=== PATIENT | male | born 1985 | race Caucasian/White ===

== ENCOUNTER 2021-09-29 16:25 | Emergency (ER) | payer OTHER ==
[~2021-09-29] VITALS: Ht 167.6 cm; Wt 70.3 kg
[2021-09-29 17:31] LABS: BASOPHILS ABSOLUTE AUTO 0.04 K/mm3 (0.00-0.23); BASOPHILS PERCENT AUTO 0 % (0-2); EOSINOPHILS ABSOLUTE AUTO 0.02 K/mm3 (0.00-0.68); EOSINOPHILS PERCENT AUTO 0 % (0-6); Hematocrit 37.3 % (37.0-53.0); Hemoglobin 13.4 g/dL (13.5-17.5); IMMATURE GRAN ABSOLUTE AUTO 0.02 K/mm3 (0.00-0.10); IMMATURE GRAN PERCENT AUTO 0 % (0-1); LYMPHOCYTES ABSOLUTE AUTO 1.56 K/mm3 (0.84-5.20); LYMPHOCYTES PERCENT AUTO 16 % (21-46); MONOCYTES ABSOLUTE AUTO 1.05 K/mm3 (0.16-1.47); MONOCYTES PERCENT AUTO 11 % (4-13); Mean Corpuscular HGB 33.8 pg (26.0-34.0); Mean Corpuscular HGB Conc 35.9 g/dL (31.5-36.5); Mean Corpuscular Volume 94 fL (80-100); Mean Platelet Volume 10.8 fL (9.1-12.4); NEUTROPHILS ABSOLUTE AUTO 6.82 K/mm3 (1.96-9.15); NEUTROPHILS PERCENT AUTO 72 % (41-73); Platelet Count 100 K/mm3 (150-400); RDW Coefficient Variation 12.3 % (11.7-14.2); Red Blood Cell Count 3.97 M/mm3 (4.30-5.90); White Blood Cell Count 9.51 K/mm3 (4.00-11.30)
[2021-09-29 17:54] LABS: U Amphetamine Screen Not Detected; U Barbituate Screen Not Detected; U Benzodiazapine Screen Not Detected; U Buprenorphine Screen Not Detected; U Cannabinoids Screen DETECTED; U Cocaine Screen Not Detected; U Methadone Screen Not Detected; U Methamphetamine Screen Not Detected; U Opiates Screen Not Detected; U Oxycodone Screen Not Detected; U Phencyclidine Screen Not Detected; U Propoxyphene Screen Not Detected
[2021-09-29 18:34] LABS: Ethanol (Alcohol), Blood, Med <3 mg/dL
[2021-09-29 18:35] LABS: Anion Gap 10 mmol/L (6-16); Blood Urea Nitrogen 4 mg/dL (8-24); Bun/Creatinine Ratio 4.4 (12.0-20.0); CO2, Blood 26 mmol/L (21-32); Calcium, Blood 9.4 mg/dL (8.5-10.1); Chloride, Blood 98 mmol/L (98-108); Creatinine, Blood 0.92 mg/dL (0.60-1.20); Glomerular Filtration Rate >60 (60-); Glucose, Blood 96 mg/dL (70-99); Potassium, Blood 2.9 mmol/L (3.5-5.5); Sodium, Blood 134 mmol/L (136-145); Troponin I <0.015 ng/mL (0.000-0.040)
== END 2021-09-29 19:00 | disposition home or self-care (01) ==
LOC: ER 16:25
PROVIDERS: Student in an Organized Health Care Education/Training Program
DX: F12.90 Cannabis use, unspecified, uncomplicated (principal); R40.4 Transient alteration of awareness; R55 Syncope and collapse; F17.210 Nicotine dependence, cigarettes, uncomplicated
CPT/HCPCS: 80048; 82947; 84484; 85025; 93005; 93010; 99284-25; A9270; G0480

== ENCOUNTER 2021-10-30 10:10 | Emergency (ER) | payer OTHER ==
[~2021-10-30] VITALS: Ht 177.8 cm; Wt 70.3 kg
[2021-10-30 10:47] LABS: BASOPHILS ABSOLUTE AUTO 0.05 K/mm3 (0.00-0.23); BASOPHILS PERCENT AUTO 1 % (0-2); EOSINOPHILS ABSOLUTE AUTO 0.18 K/mm3 (0.00-0.68); EOSINOPHILS PERCENT AUTO 2 % (0-6); Hematocrit 41.2 % (37.0-53.0); Hemoglobin 14.2 g/dL (13.5-17.5); IMMATURE GRAN ABSOLUTE AUTO 0.03 K/mm3 (0.00-0.10); IMMATURE GRAN PERCENT AUTO 0 % (0-1); LYMPHOCYTES ABSOLUTE AUTO 2.11 K/mm3 (0.84-5.20); LYMPHOCYTES PERCENT AUTO 21 % (21-46); MONOCYTES ABSOLUTE AUTO 0.67 K/mm3 (0.16-1.47); MONOCYTES PERCENT AUTO 7 % (4-13); Mean Corpuscular HGB 32.9 pg (26.0-34.0); Mean Corpuscular HGB Conc 34.5 g/dL (31.5-36.5); Mean Corpuscular Volume 95 fL (80-100); Mean Platelet Volume 10.5 fL (9.1-12.4); NEUTROPHILS ABSOLUTE AUTO 7.06 K/mm3 (1.96-9.15); NEUTROPHILS PERCENT AUTO 70 % (41-73); Platelet Count 284 K/mm3 (150-400); RDW Coefficient Variation 11.5 % (11.7-14.2); Red Blood Cell Count 4.32 M/mm3 (4.30-5.90)
[2021-10-30 11:06] LABS: Alanine Aminotransfer (ALT/SGP 29 U/L (12-78); Albumin, Blood 3.8 g/dL (3.4-5.0); Alk Phos 92 U/L (50-136); Anion Gap 5 mmol/L (6-16); Aspartate Aminotrans (AST/SGOT 23 U/L (12-37); Bilirubin, Total 0.3 mg/dL (0.1-1.0); Blood Urea Nitrogen 7 mg/dL (8-24); Bun/Creatinine Ratio 8.2 (12.0-20.0); CO2, Blood 26 mmol/L (21-32); Calcium, Blood 9.5 mg/dL (8.5-10.1); Chloride, Blood 105 mmol/L (98-108); Creatinine, Blood 0.85 mg/dL (0.60-1.20); Globulin, Blood 3.7 g/dL (2.2-4.0); Glomerular Filtration Rate >60 (60-); Glucose, Blood 116 mg/dL (70-99); Potassium, Blood 4.1 mmol/L (3.5-5.5); Sodium, Blood 136 mmol/L (136-145); Total Protein, Blood 7.5 g/dL (6.4-8.2)
[2021-10-30 11:40] LABS: Source, Urine Clean Catch
[2021-10-30 11:49] LABS: Bilirubin, Urine Neg (Neg); Blood, Urine Neg (Neg); Glucose Qualitative, Urine Neg (Neg); Ketones, Urine Neg (Neg); Leukocyte Esterase, Urine 1+ (Neg); Nitrite, Urine Neg (Neg); Protein, Urine Neg (Neg); Specific Gravity, Urine 1.025 (1.003-1.022); Urobilinogen, Urine NORM (Normal)
[2021-10-30 12:09] LABS: Appearance, Urine Clear (Clear); Color, Urine Pale Yellow (P-Yellow)
[2021-10-30 12:10] LABS: Bacteria Few /hpf; Mucus Heavy (0-Heavy); Red Blood Cells, Urine 0-2 /hpf (0-2); Squamous Epithelial Cells Rare /hpf (Few)
[2021-10-30 12:16] LABS: U Amphetamine Screen Not Detected; U Barbituate Screen Not Detected; U Benzodiazapine Screen DETECTED; U Buprenorphine Screen Not Detected; U Cannabinoids Screen DETECTED; U Cocaine Screen Not Detected; U Methadone Screen Not Detected; U Methamphetamine Screen Not Detected; U Opiates Screen Not Detected; U Oxycodone Screen Not Detected; U Phencyclidine Screen Not Detected; U Propoxyphene Screen Not Detected
[2021-10-30] MEDS ORDERED: DIVA500EC PO (15:09)
== END 2021-10-30 16:14 | disposition home or self-care (01) ==
LOC: ER 10:10
PROVIDERS: Physician Assistant
DX: R56.9 Unspecified convulsions (principal); F17.210 Nicotine dependence, cigarettes, uncomplicated; Z79.899 Other long term (current) drug therapy
CPT/HCPCS: 36415; 80053; 81001; 82947; 83735; 84146; 85025; 87086; 93005; 93010; 96374; 99284-25; A9270

== ENCOUNTER 2022-07-08 10:30 | Emergency (ER) | payer OTHER ==
[~2022-07-08] VITALS: Ht 167.6 cm; Wt 70.3 kg
[~2022-07-08 10:30] MED LIST: DIVA500EC PO
[2022-07-08] MEDS ORDERED: ONDA4ODT MM (11:58)
== END 2022-07-08 12:18 | disposition home or self-care (01) ==
LOC: ER 10:30
DX: R11.2 Nausea with vomiting, unspecified (principal); F17.210 Nicotine dependence, cigarettes, uncomplicated
CPT/HCPCS: 99283; A9270

== ENCOUNTER 2022-11-15 19:49 | Emergency (ER) | payer OTHER ==
[~2022-11-15] VITALS: Ht 167.6 cm; Wt 70.3 kg
[~2022-11-15 19:49] MED LIST changes: +ONDA4ODT MM
[2022-11-15] MEDS ORDERED: ONDA4ODT MM (20:05)
== END 2022-11-15 20:14 | disposition home or self-care (01) ==
LOC: ER 19:49
DX: S16.1XXA Strain of muscle, fascia and tendon at neck level, initial encounter (principal); M43.6 Torticollis; X58.XXXA Exposure to other specified factors, initial encounter; Z79.899 Other long term (current) drug therapy; F17.210 Nicotine dependence, cigarettes, uncomplicated
CPT/HCPCS: 96372; 99282-25; A9270; J1885

== ENCOUNTER 2023-07-13 15:47 | Emergency (ER) | payer OTHER ==
[~2023-07-13] VITALS: Ht 167.6 cm; Wt 70.3 kg
[2023-07-13 17:30] VITALS: BP 151/91
[2023-07-13] MEDS ORDERED: CHLO25 PO (19:38)
== END 2023-07-13 17:36 | disposition home or self-care (01) ==
LOC: ER 15:47
DX: R55 Syncope and collapse (principal); F17.210 Nicotine dependence, cigarettes, uncomplicated
CPT/HCPCS: 99283; A9270

== ENCOUNTER 2023-09-27 09:33 | Emergency (ER) | payer OTHER ==
[~2023-09-27] VITALS: Ht 167.6 cm; Wt 70.3 kg
[~2023-09-27 09:33] MED LIST changes: +CHLO25 PO
[2023-09-27 10:43] LABS: Influenza A, PCR POSITIVE (NEGATIVE); Influenza B, PCR NEGATIVE (NEGATIVE); Resp Syncytial Virus, PCR NEGATIVE (NEGATIVE); SARS-Cov-2 (COVID-19) PCR, MMC NEGATIVE (NEGATIVE)
[2023-09-27] MEDS ORDERED: CHLO25 PO ×2 (11:13→11:14)
[2023-09-27 12:00] VITALS: BP 143/91
== END 2023-09-27 12:12 | disposition home or self-care (01) ==
LOC: ER 09:33
PROVIDERS: Student in an Organized Health Care Education/Training Program
DX: J10.1 Influenza due to other identified influenza virus with other respiratory manifestations (principal); F10.21 Alcohol dependence, in remission; F17.210 Nicotine dependence, cigarettes, uncomplicated; Z79.899 Other long term (current) drug therapy
CPT/HCPCS: 0241U; 99283-25; A9270; J1885

== ENCOUNTER → 2024-10-09 | Outpatient (CLI) | payer OTHER ==
[~2024-10-09] MED LIST changes: +CEPH500 PO
[2024-10-09 14:32] LABS: BASOPHILS ABSOLUTE AUTO 0.11 K/mm3 (0.00-0.23); BASOPHILS PERCENT AUTO 1 % (0-2); EOSINOPHILS ABSOLUTE AUTO 0.03 K/mm3 (0.00-0.68); EOSINOPHILS PERCENT AUTO 0 % (0-6); Hematocrit 33.9 % (37.0-53.0); IMMATURE GRAN ABSOLUTE AUTO 0.04 K/mm3 (0.00-0.10); IMMATURE GRAN PERCENT AUTO 1 % (0-1); LYMPHOCYTES PERCENT AUTO 23 % (21-46); MONOCYTES ABSOLUTE AUTO 0.54 K/mm3 (0.16-1.47); MONOCYTES PERCENT AUTO 7 % (4-13); Mean Corpuscular HGB 34.4 pg (26.0-34.0); Mean Corpuscular HGB Conc 35.4 g/dL (31.5-36.5); Mean Corpuscular Volume 97 fL (80-100); NEUTROPHILS ABSOLUTE AUTO 5.35 K/mm3 (1.96-9.15); NEUTROPHILS PERCENT AUTO 68 % (41-73); Platelet Count 98 K/mm3 (150-400); RDW Standard Deviation 46.5 fL (35.1-46.3); Red Blood Cell Count 3.49 M/mm3 (4.30-5.90); White Blood Cell Count 7.87 K/mm3 (4.00-11.30)
[2024-10-09 14:43] LABS: Albumin, Blood 3.5 g/dL (3.4-5.0); Albumin/Globulin Ratio 0.9 (0.8-1.8); Bun/Creatinine Ratio 6.9 (12.0-20.0); Calcium, Blood 8.5 mg/dL (8.5-10.1); Creatinine, Blood 0.87 mg/dL (0.60-1.20); Potassium, Blood 2.6 mmol/L (3.5-5.5); Total Protein, Blood 7.5 g/dL (6.4-8.2)
== END | disposition home or self-care (01) ==
LOC: LAB SHORT 14:26 → LAB 14:26
PROVIDERS: Physician Assistant
DX: R10.9 Unspecified abdominal pain (principal); R20.0 Anesthesia of skin
CPT/HCPCS: 80053; 82607; 82746; 83690; 85025

== ENCOUNTER 2024-10-10 15:10 | Emergency (ER) | payer OTHER ==
[~2024-10-10] VITALS: Ht 167.6 cm; Wt 66.7 kg
[2024-10-10 16:37] LABS: BASOPHILS ABSOLUTE AUTO 0.11 K/mm3 (0.00-0.23); BASOPHILS PERCENT AUTO 1 % (0-2); EOSINOPHILS ABSOLUTE AUTO 0.05 K/mm3 (0.00-0.68); EOSINOPHILS PERCENT AUTO 1 % (0-6); Hematocrit 36.2 % (37.0-53.0); Hemoglobin 12.6 g/dL (13.5-17.5); IMMATURE GRAN ABSOLUTE AUTO 0.03 K/mm3 (0.00-0.10); IMMATURE GRAN PERCENT AUTO 0 % (0-1); LYMPHOCYTES PERCENT AUTO 32 % (21-46); MONOCYTES ABSOLUTE AUTO 0.75 K/mm3 (0.16-1.47); MONOCYTES PERCENT AUTO 9 % (4-13); Mean Corpuscular HGB 35.1 pg (26.0-34.0); Mean Corpuscular HGB Conc 34.8 g/dL (31.5-36.5); Mean Corpuscular Volume 101 fL (80-100); Mean Platelet Volume 10.8 fL (9.1-12.4); NEUTROPHILS PERCENT AUTO 57 % (41-73); Platelet Count 95 K/mm3 (150-400); RDW Coefficient Variation 13.2 % (11.7-14.2); RDW Standard Deviation 49.1 fL (35.1-46.3); Red Blood Cell Count 3.59 M/mm3 (4.30-5.90); White Blood Cell Count 8.44 K/mm3 (4.00-11.30)
[2024-10-10 16:50] LABS: Albumin, Blood 3.4 g/dL (3.4-5.0); Albumin/Globulin Ratio 0.8 (0.8-1.8); Bilirubin, Total 2.6 mg/dL (0.1-1.0); Bun/Creatinine Ratio 7.3 (12.0-20.0); Calcium, Blood 9.4 mg/dL (8.5-10.1); Creatinine, Blood 0.69 mg/dL (0.60-1.20); Globulin, Blood 4.4 g/dL (2.2-4.0); Phosphorus, Blood 2.8 mg/dL (2.5-4.9); Potassium, Blood 3.4 mmol/L (3.5-5.5); Total Protein, Blood 7.8 g/dL (6.4-8.2)
[2024-10-10] MEDS ORDERED: Lactated Ringer's 1,000 ML IV ONE (17:30)
[2024-10-10] MEDS ORDERED: Thiamine HCl 100 MG in NS 50 ML IV ONE (18:00)
[2024-10-10] MEDS ORDERED: Folic Acid 1 MG in NS 50 ML IV ONE (18:00)
[2024-10-10 18:31] LABS: U Amphetamine Screen Not Detected; U Barbituate Screen Not Detected; U Benzodiazapine Screen Not Detected; U Buprenorphine Screen Not Detected; U Cannabinoids Screen DETECTED; U Cocaine Screen Not Detected; U Methadone Screen Not Detected; U Methamphetamine Screen Not Detected; U Opiates Screen Not Detected; U Oxycodone Screen Not Detected; U Phencyclidine Screen Not Detected
[2024-10-10 20:25] VITALS: BP 143/98
[2024-10-10] MEDS ORDERED: ONDA4ODT MM (20:31)
[2024-10-10 20:42] LABS: Source, Urine Clean Catch
[2024-10-10 21:01] LABS: Appearance, Urine Clear (Clear); Blood, Urine 4+ (Neg); Color, Urine Amber (P-Yellow); Glucose Qualitative, Urine Neg (Neg); Ketones, Urine Neg (Neg); Leukocyte Esterase, Urine 1+ (Neg); Nitrite, Urine Neg (Neg); Protein, Urine 2+ (Neg); Urobilinogen, Urine 2+ (Normal)
[2024-10-10 21:07] LABS: Bilirubin, Urine 1+ (Neg)
[2024-10-10 21:09] LABS: Bacteria Few /hpf; Squamous Epithelial Cells Not Seen /hpf (Few); White Blood Cells, Urine 0-2 /hpf (0-5)
== END 2024-10-10 20:33 | disposition home or self-care (01) ==
LOC: ER 15:10
PROVIDERS: Student in an Organized Health Care Education/Training Program
DX: K70.10 Alcoholic hepatitis without ascites (principal); K85.90 Acute pancreatitis without necrosis or infection, unspecified; F10.10 Alcohol abuse, uncomplicated; F17.210 Nicotine dependence, cigarettes, uncomplicated; Z59.89 Other problems related to housing and economic circumstances
CPT/HCPCS: 74160; 76705; 80053; 80320; 81001; 83690; 83735; 83880; 84100; 85025; 87086; 96361; 96365; 96368; 99284-25; J3411; J7120; Q9967

== ENCOUNTER 2024-10-13 20:18 | Emergency (ER) | payer OTHER ==
[~2024-10-13] VITALS: Ht 167.6 cm; Wt 81.7 kg
[2024-10-13 20:55] LABS: BASOPHILS ABSOLUTE AUTO 0.07 K/mm3 (0.00-0.23); BASOPHILS PERCENT AUTO 1 % (0-2); EOSINOPHILS ABSOLUTE AUTO 0.04 K/mm3 (0.00-0.68); EOSINOPHILS PERCENT AUTO 1 % (0-6); Hematocrit 32.8 % (37.0-53.0); Hemoglobin 11.3 g/dL (13.5-17.5); IMMATURE GRAN ABSOLUTE AUTO 0.03 K/mm3 (0.00-0.10); IMMATURE GRAN PERCENT AUTO 0 % (0-1); LYMPHOCYTES PERCENT AUTO 28 % (21-46); MONOCYTES ABSOLUTE AUTO 0.88 K/mm3 (0.16-1.47); MONOCYTES PERCENT AUTO 11 % (4-13); Mean Corpuscular HGB 34.7 pg (26.0-34.0); Mean Corpuscular HGB Conc 34.5 g/dL (31.5-36.5); Mean Corpuscular Volume 101 fL (80-100); Mean Platelet Volume 10.8 fL (9.1-12.4); NEUTROPHILS ABSOLUTE AUTO 4.77 K/mm3 (1.96-9.15); NEUTROPHILS PERCENT AUTO 60 % (41-73); Platelet Count 100 K/mm3 (150-400); RDW Coefficient Variation 12.7 % (11.7-14.2); RDW Standard Deviation 47.6 fL (35.1-46.3); Red Blood Cell Count 3.26 M/mm3 (4.30-5.90); White Blood Cell Count 7.99 K/mm3 (4.00-11.30)
[2024-10-13 21:16] LABS: Albumin, Blood 3.1 g/dL (3.4-5.0); Albumin/Globulin Ratio 0.7 (0.8-1.8); Bilirubin, Total 2.9 mg/dL (0.1-1.0); Bun/Creatinine Ratio 6.9 (12.0-20.0); Calcium, Blood 8.8 mg/dL (8.5-10.1); Creatinine, Blood 0.58 mg/dL (0.60-1.20); Globulin, Blood 4.2 g/dL (2.2-4.0); Potassium, Blood 2.7 mmol/L (3.5-5.5); Total Protein, Blood 7.3 g/dL (6.4-8.2)
[2024-10-13] MEDS ORDERED: Lactated Ringer's 1,000 ML IV ONE (21:45)
[2024-10-13] MEDS ORDERED: Ondansetron HCl 2 MG / ML 2ML Vial IV ONE (21:45)
[2024-10-13] MEDS ORDERED: Diazepam 5 MG Tab PO ONE (21:45)
[2024-10-13 22:12] LABS: Source, Urine Clean Catch
[2024-10-13 22:16] LABS: Bilirubin, Urine Neg (Neg); Blood, Urine Neg (Neg); Glucose Qualitative, Urine Neg (Neg); Ketones, Urine Neg (Neg); Leukocyte Esterase, Urine Neg (Neg); Nitrite, Urine Neg (Neg); Protein, Urine 1+ (Neg); Urobilinogen, Urine NORM (Normal)
[2024-10-13 22:19] LABS: Appearance, Urine Clear (Clear); Color, Urine Yellow (P-Yellow)
[2024-10-13 22:29] LABS: U Amphetamine Screen Not Detected; U Barbituate Screen Not Detected; U Benzodiazapine Screen Not Detected; U Buprenorphine Screen Not Detected; U Cannabinoids Screen DETECTED; U Cocaine Screen Not Detected; U Methadone Screen Not Detected; U Methamphetamine Screen Not Detected; U Opiates Screen Not Detected; U Oxycodone Screen Not Detected; U Phencyclidine Screen Not Detected
[2024-10-13] MEDS ORDERED: ONDA4ODT MM (23:52)
[2024-10-13] MEDS ORDERED: CHLO25 PO (23:52)
[2024-10-13] MEDS ORDERED: Potassium Chloride 20 MEQ/15 ML UDC PO ONE (23:55)
[2024-10-13] MEDS ORDERED: RX Prepack 2 Tabs Ondansetron ODT 4MG UD ONE (23:55)
[2024-10-14 00:10] VITALS: BP 138/78
== END 2024-10-14 00:12 | disposition home or self-care (01) ==
LOC: ER 20:18
PROVIDERS: Student in an Organized Health Care Education/Training Program
DX: K85.90 Acute pancreatitis without necrosis or infection, unspecified (principal); K86.1 Other chronic pancreatitis; F10.939 Alcohol use, unspecified with withdrawal, unspecified; F17.210 Nicotine dependence, cigarettes, uncomplicated
CPT/HCPCS: 74177; 80053; 80320; 83690; 85025; 93005; 93010; 96361; 96374-59; 99285-25; A9270; J2405; J7120; Q9967

== ENCOUNTER → 2024-10-17 | Outpatient (CLI) | payer OTHER ==
[2024-10-17 10:48] LABS: BASOPHILS ABSOLUTE AUTO 0.09 K/mm3 (0.00-0.23); BASOPHILS PERCENT AUTO 1 % (0-2); EOSINOPHILS ABSOLUTE AUTO 0.09 K/mm3 (0.00-0.68); EOSINOPHILS PERCENT AUTO 1 % (0-6); Hematocrit 32.8 % (37.0-53.0); Hemoglobin 11.3 g/dL (13.5-17.5); IMMATURE GRAN ABSOLUTE AUTO 0.06 K/mm3 (0.00-0.10); IMMATURE GRAN PERCENT AUTO 1 % (0-1); LYMPHOCYTES ABSOLUTE AUTO 1.19 K/mm3 (0.84-5.20); LYMPHOCYTES PERCENT AUTO 16 % (21-46); MONOCYTES ABSOLUTE AUTO 0.77 K/mm3 (0.16-1.47); MONOCYTES PERCENT AUTO 11 % (4-13); Mean Corpuscular HGB 34.1 pg (26.0-34.0); Mean Corpuscular HGB Conc 34.5 g/dL (31.5-36.5); Mean Corpuscular Volume 99 fL (80-100); Mean Platelet Volume 10.8 fL (9.1-12.4); NEUTROPHILS ABSOLUTE AUTO 5.11 K/mm3 (1.96-9.15); NEUTROPHILS PERCENT AUTO 70 % (41-73); Platelet Count 138 K/mm3 (150-400); RDW Coefficient Variation 13.3 % (11.7-14.2); RDW Standard Deviation 48.9 fL (35.1-46.3); Red Blood Cell Count 3.31 M/mm3 (4.30-5.90); White Blood Cell Count 7.31 K/mm3 (4.00-11.30)
[2024-10-17 10:55] LABS: Albumin/Globulin Ratio 0.8 (0.8-1.8); Bilirubin, Total 2.4 mg/dL (0.1-1.0); Bun/Creatinine Ratio 4.4 (12.0-20.0); Calcium, Blood 8.6 mg/dL (8.5-10.1); Creatinine, Blood 0.68 mg/dL (0.60-1.20); Potassium, Blood 3.3 mmol/L (3.5-5.5)
== END | disposition home or self-care (01) ==
LOC: LAB 10:39 → LAB SHORT 10:39
PROVIDERS: Family Medicine
DX: K85.90 Acute pancreatitis without necrosis or infection, unspecified (principal)
CPT/HCPCS: 80053; 83690; 85025

== ENCOUNTER 2025-02-18 08:47 | Emergency (ER) | payer OTHER ==
[~2025-02-18] VITALS: Ht 177.8 cm; Wt 70.3 kg
[2025-02-18 10:09] LABS: BASOPHILS ABSOLUTE AUTO 0.11 K/mm3 (0.00-0.23); BASOPHILS PERCENT AUTO 1 % (0-2); EOSINOPHILS ABSOLUTE AUTO 0.13 K/mm3 (0.00-0.68); EOSINOPHILS PERCENT AUTO 1 % (0-6); Hematocrit 42.6 % (37.0-53.0); Hemoglobin 14.5 g/dL (13.5-17.5); IMMATURE GRAN ABSOLUTE AUTO 0.03 K/mm3 (0.00-0.10); IMMATURE GRAN PERCENT AUTO 0 % (0-1); LYMPHOCYTES ABSOLUTE AUTO 2.54 K/mm3 (0.84-5.20); LYMPHOCYTES PERCENT AUTO 27 % (21-46); MONOCYTES ABSOLUTE AUTO 0.56 K/mm3 (0.16-1.47); MONOCYTES PERCENT AUTO 6 % (4-13); Mean Corpuscular HGB 30.2 pg (26.0-34.0); Mean Corpuscular Volume 89 fL (80-100); Mean Platelet Volume 10.2 fL (9.1-12.4); NEUTROPHILS ABSOLUTE AUTO 6.17 K/mm3 (1.96-9.15); NEUTROPHILS PERCENT AUTO 65 % (41-73); Platelet Count 189 K/mm3 (150-400); RDW Coefficient Variation 15.3 % (11.7-14.2); RDW Standard Deviation 49.1 fL (35.1-46.3); White Blood Cell Count 9.54 K/mm3 (4.00-11.30)
[2025-02-18 10:38] LABS: Bilirubin, Total 0.5 mg/dL (0.1-1.0); Calcium, Blood 9.1 mg/dL (8.5-10.1); Creatinine, Blood 0.83 mg/dL (0.60-1.20); Globulin, Blood 4.2 g/dL (2.2-4.0); Potassium, Blood 3.2 mmol/L (3.5-5.5); Total Protein, Blood 8.2 g/dL (6.4-8.2)
[2025-02-18] MEDS ORDERED: Ketorolac Tromethamine 15mg Vial IV ONE (11:10)
[2025-02-18 11:36] LABS: Source, Urine Clean Catch
[2025-02-18 11:41] LABS: Appearance, Urine Clear (Clear); Bilirubin, Urine Neg (Neg); Blood, Urine 5+ (Neg); Color, Urine Yellow (P-Yellow); Glucose Qualitative, Urine Neg (Neg); Ketones, Urine Neg (Neg); Leukocyte Esterase, Urine Neg (Neg); Nitrite, Urine Neg (Neg); Protein, Urine 1+ (Neg); Specific Gravity, Urine 1.005 (1.003-1.022); Urobilinogen, Urine NORM (Normal); pH, Urine 6.5 (5.0-8.0)
[2025-02-18] MEDS ORDERED: Potassium Chloride 20 MEQ TabCR PO ONE (12:20)
[2025-02-18 12:32] LABS: Bacteria Few /hpf; Red Blood Cells, Urine 0-2 /hpf (0-2); Squamous Epithelial Cells Few /hpf (Few); White Blood Cells, Urine 0-2 /hpf (0-5)
[2025-02-18] MEDS ORDERED: Tamsulosin HCl 0.4 MG Cap PO ONE (12:40)
[2025-02-18] MEDS ORDERED: IBUP600 PO (12:50)
[2025-02-18] MEDS ORDERED: Flomax0.4 MG PO (12:50)
[2025-02-18 13:03] VITALS: BP 130/91
== END 2025-02-18 13:00 | disposition home or self-care (01) ==
LOC: ER 08:47
PROVIDERS: Emergency Medicine
DX: N20.1 Calculus of ureter (principal); F17.210 Nicotine dependence, cigarettes, uncomplicated; Z79.899 Other long term (current) drug therapy
CPT/HCPCS: 74177; 80053; 81001; 83690; 85025; 96374-59; 99284-25; A9270; J1885; Q9967

== ENCOUNTER 2025-04-01 06:06 | Day surgery (SDC) | payer OTHER ==
[~2025-04-01] VITALS: Ht 167.6 cm; Wt 66.6 kg
[~2025-04-01 06:06] MED LIST changes: +Flomax0.4 MG PO; +IBUP600 PO
[2025-04-01] MEDS ORDERED: CefOXitin 2000 mg Vial ONE (06:19)
[2025-04-01] MEDS ORDERED: Ondansetron HCl 2 MG / ML 2ML Vial ONE ×2 (06:38→06:40)
[2025-04-01] MEDS ORDERED: FentaNYL Citrate 50 MCG/ML 2 ML Injection ONE ×2 (06:38→06:41)
[2025-04-01] MEDS ORDERED: Dexamethasone Sod Phos 10 MG/ML 1ML VIAL ONE (06:40)
[2025-04-01] MEDS ORDERED: Ketorolac Tromethamine 30mg Vial ONE (06:40)
[2025-04-01] MEDS ORDERED: Lidocaine 2% Jelly Uro-Jet ONE (07:07)
--- NOTE | 2025-04-01 07:31 | NUR ---
04/01/25 0731 MORIAH JAIN PT IN PRE OP AREA, CLAMMY, AND REPORTING DIZZINESS/NAUSEA/PAIN 02/25. PT PROVIDED W/COOL, DAMP CLOTH AND EMESIS BAG. PT BEGAN VOMITING YELLOW, BILE EMESIS. DR. MATIAS NOTIFIED AND ORDERS RECEIVED FOR ZOFRAN AND FENTANYL - SEE CHARTING FOR DOSES.
[2025-04-01] MEDS ORDERED: Sugammadex Sodium 200 MG/2ML SDV (100 MG/ML) ONE (07:40)
--- NOTE | 2025-04-01 08:05 | NUR ---
04/01/25 0805 Shawn Urias [address] USED DURING PROCEDURE BY DR ALMEIDA
--- NOTE | 2025-04-01 08:38 | NUR ---
04/01/25 0838 YOLANDA HUDSON PT AWAKE WHEN ENTER PACU. STATES PAIN- 6-7/10 ON RIGHT SIDE. ADMIT PAIN 6/10
[2025-04-01] MEDS ORDERED: HYDROmorphone HCl/Pf 1MG SYR ONE (09:13)
[2025-04-01] MEDS ORDERED: HYDROcodone 5-APAP 325 TAB ONE (09:52)
[2025-04-01] MEDS ORDERED: Metoclopramide HCl 5MG / ML 2ML Vial ONE (10:34)
[2025-04-01 10:57] VITALS: BP 138/84
--- NOTE | 2025-04-01 10:58 | NUR ---
04/01/25 1058 Edwin Solis ADMINISTERED REGLAN 10 MG IV PER ANESTHESIA ORDER FOR NAUSEA/VOMITING.
== END 2025-04-01 11:15 | disposition home or self-care (01) ==
LOC: ORSCSDS 06:06
PROVIDERS: Urology
PROC: 0TC68ZZ Extirpation of Matter from Right Ureter, Via Natural or Artificial Opening Endoscopic (ICD-10-PCS; principal; 2025-04-01 07:30)
PROC: 0T768DZ Dilation of Right Ureter with Intraluminal Device, Via Natural or Artificial Opening Endoscopic (ICD-10-PCS; principal; 2025-04-01 07:30)
DX: N13.2 Hydronephrosis with renal and ureteral calculous obstruction (principal)
CPT/HCPCS: A9270; C1758; C1769; C2617; J0694; J1100; J1171; J1885; J2405; J2704; J2765; J3010

== ENCOUNTER 2025-04-05 14:24 | Emergency (ER) | payer OTHER ==
[~2025-04-05] VITALS: Ht 170.2 cm; Wt 70.3 kg
[2025-04-05] MEDS ORDERED: AMOX-CLAV 500-1 EAC5 PO (14:34)
[2025-04-05] MEDS ORDERED: ONDA4ODT PO (14:35)
[2025-04-05] MEDS ORDERED: PHENA200 PO (14:35)
[2025-04-05] MEDS ORDERED: HYDROCODONE-AC1 EA19 PO (14:35)
[2025-04-05] MEDS ORDERED: HYDROmorphone HCl/Pf 1MG SYR IV ONE ×3 (15:00→17:20)
[2025-04-05] MEDS ORDERED: Ondansetron HCl 2 MG / ML 2ML Vial IV ONE (15:00)
[2025-04-05] MEDS ORDERED: Ketorolac Tromethamine 30mg Vial IV ONE (15:00)
[2025-04-05] MEDS ORDERED: NS 1,000 ML IV SCH (15:00)
[2025-04-05 15:13] LABS: BASOPHILS ABSOLUTE AUTO 0.04 K/mm3 (0.00-0.23); BASOPHILS PERCENT AUTO 1 % (0-2); EOSINOPHILS ABSOLUTE AUTO 0.12 K/mm3 (0.00-0.68); EOSINOPHILS PERCENT AUTO 2 % (0-6); Hematocrit 35.1 % (37.0-53.0); Hemoglobin 12.1 g/dL (13.5-17.5); IMMATURE GRAN ABSOLUTE AUTO 0.03 K/mm3 (0.00-0.10); IMMATURE GRAN PERCENT AUTO 0 % (0-1); LYMPHOCYTES ABSOLUTE AUTO 1.53 K/mm3 (0.84-5.20); LYMPHOCYTES PERCENT AUTO 19 % (21-46); MONOCYTES ABSOLUTE AUTO 0.70 K/mm3 (0.16-1.47); MONOCYTES PERCENT AUTO 9 % (4-13); Mean Corpuscular HGB Conc 34.5 g/dL (31.5-36.5); Mean Corpuscular Volume 92 fL (80-100); NEUTROPHILS ABSOLUTE AUTO 5.58 K/mm3 (1.96-9.15); NEUTROPHILS PERCENT AUTO 70 % (41-73); NRBC ABSOLUTE 0.00 K/mm3 (0.00-0.02); NRBC Auto 0.0 /100 WBC (0.0-0.2); Platelet Count 105 K/mm3 (150-400); RDW Coefficient Variation 16.9 % (11.7-14.2); RDW Standard Deviation 57.0 fL (35.1-46.3)
[2025-04-05 15:30] LABS: Alanine Aminotransfer (ALT/SGP 70.0 U/L (12-78); Albumin, Blood 3.1 g/dL (3.4-5.0); Albumin/Globulin Ratio 0.9 (0.8-1.8); Anion Gap 7.0 mmol/L (3-11); Aspartate Aminotrans (AST/SGOT 68.0 U/L (12-37); Bilirubin, Total 0.7 mg/dL (0.1-1.0); Blood Urea Nitrogen 5.0 mg/dL (8-24); CO2, Blood 31.0 mmol/L (21-32); Calcium, Blood 9.0 mg/dL (8.5-10.1); Chloride, Blood 99.0 mmol/L (98-108); Creatinine, Blood 0.9 mg/dL (0.60-1.20); Globulin, Blood 3.5 g/dL (2.2-4.0); Glucose, Blood 96.0 mg/dL (70-99); Potassium, Blood 3.2 mmol/L (3.5-5.5); Sodium, Blood 134.0 mmol/L (136-145); Total Protein, Blood 6.6 g/dL (6.4-8.2)
[2025-04-05 17:20] LABS: Source, Urine Clean Catch
[2025-04-05 17:46] LABS: Bilirubin, Urine Neg (Neg); Color, Urine Amber (P-Yellow); Glucose Qualitative, Urine Neg (Neg); Ketones, Urine Neg (Neg); Leukocyte Esterase, Urine 1+ (Neg); Protein, Urine 3+ (Neg); Specific Gravity, Urine 1.010 (1.003-1.022); Urobilinogen, Urine 1+ (Normal)
[2025-04-05 18:37] LABS: Red Blood Cells, Urine 50-100 /hpf (0-2)
[2025-04-05] MEDS ORDERED: HYDR1TAB94 PO (19:01)
[2025-04-05] MEDS ORDERED: Zofran4 MG PO (19:01)
[2025-04-05 19:28] VITALS: BP 127/67
== END 2025-04-05 19:31 | disposition home or self-care (01) ==
LOC: ER 14:24
PROVIDERS: Emergency Medicine
DX: N13.2 Hydronephrosis with renal and ureteral calculous obstruction (principal); Z87.442 Personal history of urinary calculi; Z79.899 Other long term (current) drug therapy; F17.200 Nicotine dependence, unspecified, uncomplicated
CPT/HCPCS: 74176; 80053; 81001; 83690; 85025; 87086; 96361; 96374; 96375; 96376; 99285-25; J1171; J2405; J7030

== ENCOUNTER 2025-07-27 07:47 | Emergency (ER) | payer OTHER ==
[~2025-07-27] VITALS: Ht 167.6 cm; Wt 70.3 kg
[~2025-07-27 07:47] MED LIST changes: +AMOX-CLAV 500-1 EAC5 PO; +HYDR1TAB94 PO; +HYDROCODONE-AC1 EA19 PO; +ONDA4ODT PO; +PHENA200 PO; +Zofran4 MG PO
[2025-07-27] MEDS ORDERED: Ondansetron HCl 2 MG / ML 2ML Vial IV ONE (08:20)
[2025-07-27] MEDS ORDERED: Ketorolac Tromethamine 15mg Vial IV ONE (08:20)
[2025-07-27] MEDS ORDERED: NS 1,000 ML IV SCH (08:20)
[2025-07-27] MEDS ORDERED: FentaNYL Citrate 50 MCG/ML 2 ML Injection IV ONE (08:20)
[2025-07-27 08:42] LABS: BASOPHILS ABSOLUTE AUTO 0.07 K/mm3 (0.00-0.23); BASOPHILS PERCENT AUTO 1 % (0-2); EOSINOPHILS ABSOLUTE AUTO 0.02 K/mm3 (0.00-0.68); EOSINOPHILS PERCENT AUTO 0 % (0-6); Hematocrit 42.6 % (37.0-53.0); Hemoglobin 15.0 g/dL (13.5-17.5); IMMATURE GRAN ABSOLUTE AUTO 0.02 K/mm3 (0.00-0.10); IMMATURE GRAN PERCENT AUTO 0 % (0-1); LYMPHOCYTES ABSOLUTE AUTO 1.19 K/mm3 (0.84-5.20); LYMPHOCYTES PERCENT AUTO 12 % (21-46); MONOCYTES ABSOLUTE AUTO 0.56 K/mm3 (0.16-1.47); MONOCYTES PERCENT AUTO 6 % (4-13); Mean Corpuscular HGB Conc 35.2 g/dL (31.5-36.5); Mean Corpuscular Volume 93 fL (80-100); NEUTROPHILS ABSOLUTE AUTO 8.02 K/mm3 (1.96-9.15); NEUTROPHILS PERCENT AUTO 81 % (41-73); NRBC ABSOLUTE 0.00 K/mm3 (0.00-0.02); NRBC Auto 0.0 /100 WBC (0.0-0.2); Platelet Count 141 K/mm3 (150-400); RDW Coefficient Variation 14.4 % (11.7-14.2); RDW Standard Deviation 49.7 fL (35.1-46.3)
[2025-07-27 08:54] LABS: Source, Urine Clean Catch
[2025-07-27 08:57] LABS: Bilirubin, Urine Neg (Neg); Glucose Qualitative, Urine Neg (Neg); Ketones, Urine Neg (Neg); Leukocyte Esterase, Urine Neg (Neg); Protein, Urine Neg (Neg); Specific Gravity, Urine 1.010 (1.003-1.022); Urobilinogen, Urine NORM (Normal)
[2025-07-27 08:58] LABS: Color, Urine No Color (P-Yellow)
[2025-07-27 08:59] LABS: Alanine Aminotransfer (ALT/SGP 75.0 U/L (12-78); Albumin, Blood 3.9 g/dL (3.4-5.0); Albumin/Globulin Ratio 1.1 (0.8-1.8); Anion Gap 10.0 mmol/L (3-11); Aspartate Aminotrans (AST/SGOT 103.0 U/L (12-37); Bilirubin, Total 1.0 mg/dL (0.1-1.0); Blood Urea Nitrogen 3.0 mg/dL (8-24); CO2, Blood 26.0 mmol/L (21-32); Calcium, Blood 9.5 mg/dL (8.5-10.1); Chloride, Blood 100.0 mmol/L (98-108); Creatinine, Blood 0.63 mg/dL (0.60-1.20); Globulin, Blood 3.7 g/dL (2.2-4.0); Glucose, Blood 141.0 mg/dL (70-99); Potassium, Blood 3.2 mmol/L (3.5-5.5); Sodium, Blood 133.0 mmol/L (136-145); Total Protein, Blood 7.6 g/dL (6.4-8.2)
[2025-07-27] MEDS ORDERED: HYDROmorphone HCl/Pf 1MG SYR IV ONE (09:25)
[2025-07-27 10:15] VITALS: BP 128/87
[2025-07-27] MEDS ORDERED: ONDA4ODT MM (10:41)
[2025-07-27] MEDS ORDERED: Percocet 5-3251 EACH PO (10:41)
== END 2025-07-27 10:56 | disposition home or self-care (01) ==
LOC: ER 07:47
PROVIDERS: Student in an Organized Health Care Education/Training Program
DX: R10.A1 Flank pain, right side (principal); K76.0 Fatty (change of) liver, not elsewhere classified; E87.1 Hypo-osmolality and hyponatremia; E87.6 Hypokalemia; R74.8 Abnormal levels of other serum enzymes; R73.9 Hyperglycemia, unspecified; D69.6 Thrombocytopenia, unspecified; F17.210 Nicotine dependence, cigarettes, uncomplicated; Z87.442 Personal history of urinary calculi; Z96.0 Presence of urogenital implants; Z79.899 Other long term (current) drug therapy
CPT/HCPCS: 74177; 80053; 81003; 83690; 85025; 93005; 93010; 96361; 96374-59; 96375; 99284-25; A9270; J1171; J1885; J2405; J3010; J7030; Q9967